=== PATIENT | male | born 1980 | race Caucasian/White ===

== ENCOUNTER → 2021-03-14 | Outpatient (CLI) | payer BC, OTHER ==
[~2021-03-14] MED LIST: NORCO 5-325 TA1 EACH PO; PERCOCET 7.5-31 EACH PO
== END ==
LOC: RAD 14:39
DX: M25.512 Pain in left shoulder (principal); M25.511 Pain in right shoulder; M54.2 Cervicalgia; M54.9 Dorsalgia, unspecified; R05 Cough
CPT/HCPCS: 71046; 72050; 72072; 72110; 73030

== ENCOUNTER → 2022-02-09 | Day surgery (SDC) | payer OTHER | END | disposition left against medical advice (07) | LOC: OR 07:30 | DX: G56.03 Carpal tunnel syndrome, bilateral upper limbs (principal); Z53.29 Procedure and treatment not carried out because of patient's decision for other reasons; Z20.822 Contact with and (suspected) exposure to COVID-19; Z87.891 Personal history of nicotine dependence | CPT/HCPCS: J7120 ==